=== PATIENT | male | born 1960 | race Caucasian/White ===

== ENCOUNTER 2019-08-25 19:21 | Emergency (ER) | payer BC ==
--- NOTE | 2019-08-25 19:29 | EDM.PDOC ---
ED HPI GENERAL MEDICAL PROBLEM - General Stated Complaint: FELL; ANKLE PAIN Time Seen by Provider: 08/25/19 19:28 Source of Information: Reports: Patient History Limitations: Reports: No Limitations - History of Present Illness INITIAL COMMENTS - FREE TEXT/NARRATIVE: 59-year-old male who reports that he just gone up to the second step on his step ladder and it gave way causing him to fall on his right side and twisting his right ankle. He scraped his right hand. He really has no pain there but does have 8/10 level pain in his right ankle and there is marked swelling and bruising to the area. He denies any head injury. He has no neck pain or back pain. No nausea or vomiting. The pain is a sharp pain. It is worse with palpation and movement. He has no right knee or foot pain. He does report there is some numbness in his right foot. There are no other associated signs or symptoms. There are no other modifying factors. Onset: Today Duration: Constant Location: Reports: Lower Extremity, Right Quality: Reports: Sharp, Throbbing Severity: Moderate (to severe) Improves with: Reports: Immobilization, Rest Worsens with: Reports: Other (Palpation), Movement Context: Reports: Trauma (Fell from ladder) Associated Symptoms: Reports: No Other Symptoms Treatments MYSQL DBA: Reports: Other (see below) (Nothing) Left Ankle Pain Score (Numeric/FACES): 8 - Related Data Allergies Allergy/AdvReac Type Severity Reaction Status Date / Time Penicillins Allergy Cannot Verified 08/25/19 19:40 Remember Home Meds: Home Meds Lovastatin PO DAILY 08/25/19 [History] Past Medical History Cardiovascular History: Reports: Hypertension - Past Surgical History HEENT Surgical History: Reports: Tonsillectomy Social & Family History - Tobacco Use Smoking Status *Q: Current Every Day Smoker - Alcohol Use Alcohol Use History: Yes Alcohol Use Frequency: Daily (Had one beer today he states) - Living Situation & Occupation Occupation: Employed (He works at a [employer].) Review of Systems - Review of Systems Review Of Systems: See Below Constitutional: Reports: Other (It has been greater than 5 years since his last tetanus immunization.) Eyes: Reports: No Symptoms Ears: Reports: No Symptoms Nose: Reports: No Symptoms Mouth/Throat: Reports: No Symptoms Respiratory: Reports: No Symptoms Cardiovascular: Reports: No Symptoms GI/Abdominal: Reports: No Symptoms Musculoskeletal: Reports: Joint Pain (Right ankle pain and swelling and ecchymosis) Skin: Reports: Wound (Abrasions to dorsum of right hand) Neurological: Reports: No Symptoms ED EXAM, GENERAL - Physical Exam Exam: See Below Exam Limited By: No Limitations General Appearance: Alert, WD/WN, Mild Distress Eye Exam: Bilateral Eye: EOMI (No lateral gaze nystagmus and less than 45.), Normal Inspection, PERRL Ears: Normal External Exam, Hearing Grossly Normal Ear Exam: Bilateral Ear: Auricle Normal Nose: Normal Inspection, Normal Mucosa, No Blood Throat/Mouth: Normal Voice, No Airway Compromise, Other (Slight odor of alcohol on his breath) Head: Atraumatic, Normocephalic Neck: Normal Inspection, Supple, Non-Tender, Full Range of Motion Respiratory/Chest: No Respiratory Distress, Lungs Clear, Normal Breath Sounds, No Accessory Muscle Use, Chest Non-Tender Cardiovascular: Normal Peripheral Pulses, Regular Rate, Rhythm, No JVD Peripheral Pulses: 2+: Radial (L), Radial (R), Dorsalis Pedis (L), Dorsalis Pedis (R) GI/Abdominal: Normal Bowel Sounds, Soft, Non-Tender, No Mass Back Exam: Normal Inspection Extremities: Normal Capillary Refill, Limited Range of Motion, Other (Warm foot with good perfusion on the right) Neurological: Alert, Oriented, CN II-XII Intact, Normal Cognition, No Motor/ Sensory Deficits Skin Exam: Warm, Dry, Normal Color, No Rash, Wound/Incision (Abrasions 2 on dorsum of right hand.) ED TRAUMA EXTREMITY PROCEDURES - Splinting Right Lower Extremity Pre-Procedure NV Status: Normal Post-Procedure NV Status: Normal Splint Material: Other (Ortho-Glass splinting material) Splint Design: Posterior (With a stirrup) Applied & Form Fitted By: Provider Provider Post-Splint Application NV Check: NV Status Normal Complications: No Progress/Comments: After informed verbal consent was obtained from the patient, I applied padding material to the right lower leg, ankle and foot, padding the ankle well area then using Ortho-Glass splinting material, I placed a posterior short leg splint with a stirrup. I did place medial pressure along the ankle and this appeared to the subluxation. The patient had previously been given morphine 10 mg IM. The patient tolerated this well and there were no apparent complications Course - Vital Signs Last Recorded V/S: Last Vital Signs Temp 36.9 C 08/25/19 19:21 Pulse 84 08/25/19 19:21 Resp 18 08/25/19 19:21 BP 165/85 H 08/25/19 19:21 Pulse Ox 99 08/25/19 19:21 - Orders/Labs/Meds Orders: Active Orders 24 hr Category Date Time Status Vaccines to be Administered [RC] PER UNIT ROUTINE Care 08/25/19 19:43 Active Ankle Min 3V Rt [CR] Stat Exams 08/25/19 19:36 Taken Tibia Fibula Rt [CR] Stat Exams 08/25/19 19:36 Taken Meds: Medications Discontinued Medications Generic Name Dose Route Start Last Admin Trade Name Freq PRN Reason Stop Dose Admin Diphtheria/Tetanus/Acell Pertussis 0.5 ml 08/25/19 19:43 08/25/19 19:57 Adacel IM 08/25/19 19:44 0.5 ml .ONCE ONE Administration Morphine Sulfate 10 mg 08/25/19 19:37 08/25/19 19:55 Morphine IM 08/25/19 19:38 10 mg ONETIME ONE Administration Ondansetron HCl 4 mg 08/25/19 19:37 08/25/19 19:55 Zofran Odt PO 08/25/19 19:38 4 mg ONETIME ONE Administration - Radiology Interpretation Free Text/Narrative:: X-ray of right tib-fib shows ankle fracture but no evidence of fracture in the proximal leg or knee. X-ray of right ankle shows displaced, subluxed bimalleolar fracture. - Re-Assessments/Exams Free Text/Narrative Re-Assessment/Exam: 08/25/19 20:15: The x-ray of the right ankle and lower leg shows a bimalleolar fracture that is subluxed about 50%. On exam the ankle is quite loose and unstable and with some pressure easily slides back medially. This will need orthopedic specially services which are not available at [facility] at this time. He will need operative repair of this ankle. I discussed this with the patient and he would want me to discuss his case with the doctors at [facility]. 08/25/19 20:35: I discussed the patient's case with Dr. Chong, ED physician at [facility] and he has agreed to accept the patient in transfer. I will place the patient in a short leg posterior splint with a stirrup using Ortho-Glass material. And the patient will be transferred to [facility] in [place] by his via private vehicle. The patient and his are in agreement with this plan. The patient was given a Tdap immunization to bring his tetanus immunization status up-to-date. Departure - Departure Time of Disposition: 21:05 Disposition: DC/Tfer to Acute Hospital 02 Condition: Good (Stable) Clinical Impression: Closed bimalleolar fracture of right ankle Qualifiers: Encounter type: initial encounter Qualified Code(s): S82.841A - Displaced bimalleolar fracture of right lower leg, initial encounter for closed fracture Abrasion of right hand Qualifiers: Encounter type: initial encounter Qualified Code(s): S60.511A - Abrasion of right hand, initial encounter - Discharge Information Additional Instructions: Go directly to the emergency department at [facility] do not eat or drink anything until cleared to do so by the doctors at [facility]. Leave the splint intact. - My Orders Last 24 Hours: My Active Orders 08/25/19 19:36 Ankle Min 3V Rt [CR] Stat Tibia Fibula Rt [CR] Stat 08/25/19 19:43 Vaccines to be Administered [RC] PER UNIT ROUTINE - Assessment/Plan Last 24 Hours: My Active Orders 08/25/19 19:36 Ankle Min 3V Rt [CR] Stat Tibia Fibula Rt [CR] Stat 08/25/19 19:43 Vaccines to be Administered [RC] PER UNIT ROUTINE
[2019-08-25] MEDS ORDERED: Morphine 10 MG/ML SDV IM ONE (19:37)
[2019-08-25] MEDS ORDERED: Ondansetron 4 MG Tab.DIS PO ONE (19:37)
[2019-08-25] MEDS ORDERED: Diphtheria,Pertussis(Acell),Tetanus Vaccine 0.5 ML SDV IM ONE (19:43)
--- NOTE | 2019-08-26 13:38 | CR ---
INDICATION: Twisted ankle after a fall with pain. RIGHT TIBIA/FIBULA: Frontal and lateral views of the right tibia and fibula revealed a comminuted fracture of the distal shaft of the fibula with anterior angulation at the fracture site. Smaller fracture fragments are angulated medially. No other bone or joint abnormality was suggested. IMPRESSION: Fibular fracture with deformity. MTDD
--- NOTE | 2019-08-26 13:41 | CR ---
INDICATION: Twisted ankle after a fall with pain. RIGHT ANKLE: Three views of the right ankle revealed a fairly severely comminuted fracture of the distal shaft of the fibula with posterior offset and lateral offset of the distal fracture fragment of approximately 5-7 mm. There likely is 2-3 mm overriding of the fracture fragments. There is a lateral shift of the talus with respect to the tibia with fracture through the medial malleolus remaining with the talus. No other bone or joint abnormality was seen. IMPRESSION: Bimalleolar fracture subluxation - significant deformity. MTDD
== END 2019-08-25 21:20 ==
LOC: FB.ED 19:21
DX: S82.451A Displaced comminuted fracture of shaft of right fibula, initial encounter for closed fracture (principal); S60.511A Abrasion of right hand, initial encounter; I10 Essential (primary) hypertension; F17.200 Nicotine dependence, unspecified, uncomplicated; Z23 Encounter for immunization; Z88.0 Allergy status to penicillin; Z79.899 Other long term (current) drug therapy; W11.XXXA Fall on and from ladder, initial encounter
CPT/HCPCS: 29515; 73590-RT; 73610-RT; 90471; 90715; 96372; 99284-25; A9270-GY; J2270